=== PATIENT | female | born 1965 | race Asian ===

== ENCOUNTER 2025-03-21 07:59 | Emergency (ER) | payer BC, SELFPAY ==
--- OUTSIDE RECORDS SUMMARY | 2024-09-22 08:40 | XMS_ITS ---
Author Organization Formerly [facility] Address [address] [place] [address] Care Team Providers Care Project Control Officer Name Role Phone Ani Alcocer Primary Care Provider Willi RICHARDSON Unavailable Unavailable REASON FOR VISIT est pcp Social History Sex Assigned At : Social History Observation Description Sex Assigned At Female Encounters Encounter Location Date Provider Diagnosis [address] [address] 09/22/2024 Ani Alcocer Plan Of Treatment No Information Progress Notes * Jordan DANIELSaDOB:1965 (60 yo F)Acc No.[id number]:09/22/2024 UNLOCKED PROGRESS NOTE Progress Notes Patient: Faina JIMENEZ Provider: Jeanine Alcocer APRN :1965 A ge:59 Y S ex:Female Date:09/22/2024 Address:[address] [place], [place] [id number] Subjective: * Chief Complaints: * 1 . Est pcp. * Medical History: Objective: * Vitals: Assessment: Plan: * Treatment: * * Electronic signature of Christelle Alcocer [id number] on 03/21/2025 at 09:21 AM CDT Sign off status: Pending * Provider: Jeanine Alcocer APRN Date: 0 09/22/2024 Generated for Moraima chandler/Brad/Bowenitting on: 0 03/21/2025 09:21 AM CDT
--- NOTE | ~2025-03-21 | XR_ITS ---
Examination: XR chest 2V Clinical History: weakness, fever Comparison: None Technique: PA and Lateral Findings: Cardiomediastinal silhouette normal size and configuration. Lungs clear. No acute bony abnormality. IMPRESSION: 1. No acute cardiopulmonary findings. Reviewed, dictated and finalized at location A.
--- NOTE | ~2025-03-21 | CT_ITS ---
CT HEAD NON-CONTRAST Clinical History: ann, fevers, dizziness Comparison: None Technique: Unenhanced axial images skull base to vertex Coronal, sagittal reformats CT images acquired with automatic exposure control for dose reduction DLP: 605 mGy-cm Findings: Sulci, ventricles: Unremarkable. No intracerebral hemorrhage. No evidence acute territorial infarct. No mass effect, midline shift. Bony calvarium intact. Visualized paranasal sinuses: Clear. Mastoid air cells: Clear. IMPRESSION: 1. No acute intracranial findings. Reviewed, dictated and finalized at location A.
[2025-03-21 08:09] VITALS: BP 119/76; PULSE 102; RESP 17; TEMP 37.2; O2SAT 100
[2025-03-21 08:12] VITALS: RESP 17; O2SAT 100
[2025-03-21] MEDS: LACTATED RINGERS 1,000 ML 999 ML IV CONT (09:00)
[2025-03-21] MEDS: LACTATED RINGERS 700 ML 999 ML IV CONT (09:01)
[2025-03-21 09:04] LABS: Influenza A QL RT-PCR Negative (Negative); Influenza B QL RT-PCR Negative (Negative); RSV RNA, RT-PCR Negative (Negative); SARS-CoV-2 RNA PCR Negative (Negative)
[2025-03-21 09:07] LABS: Hematocrit 38.0 % (37.0-47.0); Hemoglobin 11.9 g/dL (12.0-15.0); Immature Granulocyte Percent A 0.5 % (0-0.5); Lymphocytes Absolute Auto 1.48 K/mm3 (0.9-3.2); Mean Corpuscular HGB Conc 31.3 g/dl (32-36); Mean Corpuscular Hemoglobin 23.4 pg (26-34); Mean Corpuscular Volume 74.8 fl (80-100); Nucleated Red Blood Cells Absolute Auto 0.000 K/mm3 (0.0-0.012); Nucleated Red Blood Cells Perc 0.0 % (0.0-0.2); Platelet Count Result 264 k/mm3 (150-375); Red Blood Count 5.08 M/mm3 (4.2-5.4); White Blood Count 7.3 K/mm3 (4.5-10.0)
[2025-03-21 09:20] LABS: Alanine Aminotransferase 22 U/L (6-35); Albumin Level 4.1 g/dL (3.5-5.1); Alkaline Phosphatase 71 U/L (38-126); Anion Gap 11 mmol/L (4-12); Aspartate Amino Transferase 25 U/L (14-36); Bilirubin,Total 0.7 mg/dL (0.2-1.3); Blood Urea Nitrogen 10 mg/dL (7-17); Calcium 9.0 mg/dL (8.4-10.2); Carbon Dioxide 21 mmol/L (22-30); Chloride 104 mmol/L (98-107); Estimated CRCL calculation 77 ml/min; Estimated Glomerular Filt Rate > 60; Glucose 285 mg/dL (65-110); Lipase 57 U/L (23-300); Potassium 4.1 mmol/L (3.4-5.0); Sodium 136 mmol/L (137-145); Total Protein 7.7 g/dL (6.3-8.2)
--- OUTSIDE RECORDS SUMMARY | 2025-03-21 09:21 | XMS_ITS | Clinical Summary ---
Author Organization [facility] Address [address] [place] [address] Phone Care Team Providers Care Imaging Assistant Name Role Phone Unavailable Primary Care Provider Unavailabl e Social History Tobacco Use Types Packs/Day Years Used Date Smoking Tobacco: Never Assessed Comments Unknown Sex and Gender Information Value Date Recorded Sex Assigned at Not on file Legal Sex Female 9:36 AM CDT Gender Identity Not on file Sexual Orientation Not on file Plan of Treatment Health Maintenance Due Date Last Done Comments Hepatitis C Virus (HCV) Screening 1965 Mammogram 1965 TdaP Immunization 1965 Pap Smear 1986 Cervical Cancer Screening (CCS) 1995 HPV/Cotest 1995 Cologuard 2010 Colonoscopy 2010 Colorectal Cancer Screening 2010 Immunochemical Fecal Occult Blood 2010 Pneumococcal Immunization (5 0+ years) (1 of 1 - PCV) 2015 Zoster Immunization (1 of 2) 2015 SARS-COV-2 Immunization ( - season) 2024 Influenza Immunization (#1) 2025 Respiratory Syncytial Virus (RSV) Immunization (Adult) (1 - 1-dose 75+ series) 01/31/2040 Hepatitis B Immunization Aged Out No longer eligible based on patient's age to complete this topic Human Papillomavirus (HPV) Immunization Aged Out No longer eligible b ased on patient's age to complete this topic Meningococcal Immunization (ACWY) Aged Out No longer eligible based on patient's age to complete this topic Rotavirus Immunization Aged Out No lo nger eligible based on patient's age to complete this topic
--- OUTSIDE RECORDS SUMMARY | 2025-03-21 09:21 | XMS_ITS | Clinical Summary ---
Author Organization [facility] Address [address] [place] [address] Care Team Providers Care Framing And Hanging Name Role Phone Lola Villarreal MD Primary Care Provider [phone] Source Comments [facility],non-owned Affiliates and Associated Physician Practices is amultiple site organization consisting of ambulatory clinics and hospital sitesin [place], [place], [place] and [place]. This disclosure is being madepursuant to the Care Everywhere program and may not contain all information available regarding this patient. Last updated 18.[facility] Allergies Active Allergy Reactions Criticality Noted Date Comments Mycinettes Unknown 05/03/2019 Medications * Be aware that medications may not be up to date on this document. Alwaysverify current medications with the patient. B-D ULTRAFINE III SHORT PEN 31G X 8 MM needleIndications: Type 2 diabetes mellitus without complication, with long-term current use of insulin (HCC) USE TO INJECT DAILY 100 Each 3 03/24/20 23 Active atorvastatin (Lipitor) 20 MG tabletIndications: Hyperlipidemia, unspecified hyperlipidemia type Take 1 (one) tablet by mouth once daily 100 tablet 4 04/03/20 23 Active Additional Information Patient not taking.Reported on 08/02/2024 cyanocobalamin (Vitamin B-12) 1000 MCG tabletIndications: Vitamin B12 deficiency Take 1 (one) tablet by mouth once daily 100 tablet 04/03/20 23 Active diclofenac sodium (Voltaren) 1 % gelIndications:Rib pain on left side Apply 4 (four) g to affected area 4 times daily as needed 100 g 1 09/25/19 24 Active Additional Information Patient not taking.Reported on 08/02/2024 insulin pen needle (1st Tier Unifine Pentips Plus) 29G X 12MM needleIndications: Type 2 diabetes mellitus without complication, with long-term current use of insulin ([facility]) as directed Use once a day for insulin administration. 100 Each 1 08/02/19 25 Active vitamin D (Cholecaciferol) 125 MCG (5000 UT) capsuleIndications :Vitamin D deficiency Take 1 (one) capsule by mouth once daily 90 capsule 08/02/19 25 Active metFORMIN ER 24hr (Glucophage XR) 500 MG tabletIndications: Type 2 diabetes mellitus without complication, with long-term current use of insulin ([facility]) TAKE 2 TABLETS BY MOUTH TWICE DAILY. 360 tablet 1 10/09/19 25 Active lisinopril (Prinivil; Zestril) 5 MG tabletIndications: Hypertension, unspecified type TAKE 1 TABLET BY MOUTH EVERY DAY. 90 tablet 1 10/09/19 25 Active Lantus SoloStar penIndications:Typ e 2 diabetes mellitus without complication, with long-term current use of insulin ([facility]) INJECT 25 UNITS SUBCUTANEOUS AT BEDTIME. 15 mL 1 11/19/19 25 Active Active Problems Problem Noted Date Diagnosed Date Vitamin B12 deficiency 04/02/2023 Benign paroxysmal positional vertigo 01/01/2023 Osteoarthritis of left knee 01/01/2023 Vitamin D deficiency 01/01/2023 Hypertension 09/03/2022 Hyperlipidemia 09/03/2022 Snoring 07/16/2022 Suspected sleep apnea 07/16/2022 Gasping for breath 07/16/2022 Fatigue 07/16/2022 Type 2 diabetes mellitus wit hout complication, with long-term current use of insulin 06/12/2022 Resolved Problems Problem Noted Date Diagnosed Date Resolved Date Fever of undetermined origin 05/15/2019 01/05/2020 Sepsis due to undetermined organism 05/12/2019 01/05/2020 Tendinopathy of rotator cuff, left 01/15/2019 09/03/2022 Pain in right knee 06/16/2018 3 Encounters Date Type Department Care Team Description 02/21/2025 Telephone [facility] - Family Medicine [address] [place] [address] Lola Villarreal MD Order from Last 3 Months Immunizations Immunization Administration Dates Next Due Covid Pfizer primary monoval ent 12+ yr 0.3mL Purple cap 12/04/2020,11/09/2020 Family History Medical History Relation Name Comments CAD (Coronary Artery Disease) Brother 1 [place] age 49 CAD (Coronary Artery Disease) Father [place] 47 Diabetes - Type 2 Father Diabetes - Type 2 Mother age 8 7 Other - Gastrointestinal Mother obs truction declined surgery Other Sister 1 heat stroke - P [place] Anxiety Disorder Sister 2 Bipolar Disorder Son Seizures Son epilepsy Relation Name Status Comments Brother 1 Brother 2 Alive Brother 3 Alive Brother 4 Alive Father Mother Sister 1 Sister 2 Alive Son Alive Social History Tobacco Use Types Packs/Day Years Used Date Smoking Tobacco: Never Smokeless Tobacco: Never Tobacco Cessation:Counseling Given: Not Answered Alcohol Use Standard Drinks/Week Comments No 0 (1 standard drink = 0.6 oz pur e alcohol) PHQ-2 Answer Date Recorded Patient Health Questionnaire-2 Score 2 08/02/2024 Comments No Sex and Gender Information Value Date Recorded Sex Assigned at Female 09/25/2023 1:09 PM CDT Legal Sex Female 1:34 PM CDT Gender Identity Not on file Sexual Orientation Not on file Last Filed Vital Signs Vital Sign Reading Time Taken Comments Blood Pressure 128/72 08/02/2024 3:01 PM LOSS PREVENTION REPRESENTATIVE Pulse 78 08/02/2024 3:01 PM LOSS PREVENTION REPRESENTATIVE Temperature 36.6 C (97.9 F) 10/31/2022 2:51 PM CDT Respiratory Rate 16 02/25/2024 3:24 PM CDT Oxygen Saturation 97% 08/02/2024 3:01 PM LOSS PREVENTION REPRESENTATIVE Inhaled Oxygen Concentration 21% 05/14/2019 1 0:46 AM CDT Weight 58.1 kg (128 lb) 09/01/2024 3:00 PM LOSS PREVENTION REPRESENTATIVE Height 154.9 cm (5' 1) 09/01/2024 3:00 PM LOSS PREVENTION REPRESENTATIVE Body Mass Index 24.19 09/01/2024 3:00 PM LOSS PREVENTION REPRESENTATIVE Plan of Treatment Health Maintenance Due Date Last Done Comments GLORY (AGES 45-75) - COLON CA SCREENING 1965 COLON MONITORING 1965 COLONOSCOPY - COLON CA SCREENING 1965 CT COLONOGRAPHY - COLON CA SCREENING 1965 Colorectal Cancer Screening 1965 FIT - COLON CA SCREENING 1965 FLEX SIG - COLON CA SCREENING 1965 DTAP/TDAP/TD VACCINES (1 - Tdap) 01/31/1984 PNEUMOCOCCAL VACCINE 50+ (1 of 2 - PCV) 01/31/1984 ZOSTER VACCINE (1 of 2) 2015 MAMMOGRAM 06/28/2021 06/28/2019, 06/04/2019 DIABETES RETINOPATHY SCREENING 06/12/2022 05/29/2020, 05/29/2020, 05/29/2020 COVID-19 VACCINE (3 - season) 2024 12/04/2020, 11/09/2020 PAP with HPV 05/26/2024 05/26/2019 DIABETES-SERUM CREATININE 10/07/20242023, 03/28/2023, 11/07/2020, Additional history exists DIABETES-FOOT EXAM WITH MONOFILAMENT 10/13/2024 10/14/2023, 09/03/2022, 01/05/2020, Additional history exists DIABETES-HGB A1C 10/31/2024 08/02/2024, , 10/08/2023, Additional history exists HEPATITIS B VACCINE (1 of 3 - Risk 3-dose series) 2025 Respiratory Syncytial Virus (RSV) Vaccine Pt: or over 60 yrs (1 - Risk 60-74 years 1-dose series) 2025 INFLUENZA VACCINE (#1) 2025 DIABETES - URINE PROTEIN SCREENING 08/02/2025 08/02/2024, 01/01/2023, 11/07/2020, Additional history exists HEPATITIS C SCREENING Completed 01/01/2019 HIV SCREENING Completed 05/13/2019 DEPRESSION SCREENING Completed 08/02/2024, 10/14/2023, 09/03/2022, Additional history exists HIB VACCINE Aged Out No longer eligi ble based on patient's age to complete this topic HPV VACCINE Aged Out No longer eligi ble based on patient's age to complete this topic MENINGOCOCCAL (Group B) VACCINE SHARED DECISION-MAKING Aged Out No longer eligible based on patient's age to complete this topic MENINGOCOCCAL GROUPS A/C/Y/W VACCINE Aged Out No longer eligible based on patient's age to complete this topic Goals Goal Patient Goal Type Associated Problems Recent Progress Patient-Stated? Author Mobility General No Magali Bolaños, RN Note: Expected end date: 07/13/2020 The goal is to maintain or improve your mobility at the optimum level for you. Interventions: Procedures Procedure Name Priority Date/Time Associated Diagnosis Comments MICROALB/CREAT RATIO URINE RANDOM PANEL Routine 08/02/2024 4:12 PM LOSS PREVENTION REPRESENTATIVE Type 2 diabetes mellitus without complication, with long-term current use of insulin HEMOGLOBIN A1C - POINT OF CARE (AMB) Routine 08/02/2024 3:34 PM LOSS PREVENTION REPRESENTATIVE Type 2 diabetes mellitus without complication, with long-term current use of insulin COMPREHENSIVE METABOLIC PANEL Routine 10/08/2023 11:40 AM CDT Type 2 diabetes mellitus without complication, with long-term current use of insulin Vitamin D deficiency HM DIABETES EYE EXAM Routine 05/29/2020 MAMMO BILAT DIAGNOSTIC Routine 06/28/2019 2:10 PM LOSS PREVENTION REPRESENTATIVE Abnormal mammogram PAP IG LB+HPV APTIMA Routine 05/26/2019 12:24 PM LOSS PREVENTION REPRESENTATIVE Well woman exam with routine gynecological exam HIV-1 HIV-2 ANTIBODY + HIV P24 AG PANEL AM Draw 05/13/2019 12:23 AM CDT Fever, unspecified fever cause HEPATITIS C ANTIBODY Routine 01/01/2019 9:55 AM CDT Encounter for hepatitis C screening test for low risk patient from Last 3 Months or Most Recently Relevant to Health Maintenance Results * MICROALB/CREAT RATIO URINE RANDOM PANEL (08/02/2024 4:12 PM LOSS PREVENTION REPRESENTATIVE) Creatinine Urine 64.3 Not Estab. mg/dL [facility] INSURANCE BILL Microalbumin Urine <3.0 Not Estab. ug/mL [facility] INSURANCE BILL Microalbumin/Crea tinine Ratio <5 0 - 29 mg/g creat [facility] INSURANCE BILL Comment: Normal: 0 - 29 Moderately increased: 30 - 300 Severely increased: >300 Urine URINE SPECIMEN OBTAINED BY CLEAN CATCH PROCEDURE / Unknown 08/02/2024 4:12 PM LOSS PREVENTION REPRESENTATIVE 08/02/2024 Narrative [facility] INSURANCE BILL - 08/03/2024 7:08 AM LOSS PREVENTION REPRESENTATIVE Performed at: [id number] [place], [place] [id number] Ward Helper: Wing Tucker PhD, Phone: [phone] us Ernestine Soto APRNSURYA LAB - URINE CHEMISTRY ORDERABLES Final Result Performing Organization Address City/[facility]/ZIP Co de Phone Number [facility] INSURANCE BILL [address] [place] [address] * HEMOGLOBIN A1C - POINT OF CARE (HgbA1C) (08/02/2024 3:34 PM LOSS PREVENTION REPRESENTATIVE) Pathologist [facility] Hemoglobin A1c POCT 10.7 % [facility] Expiration Date 03-29-26 [facility] Lot # [id number] [facility] [place] Verified Yes Yes [facility] Blood BLOOD SPECIMEN / Unknown 08/02/2024 3:34 PM LOSS PREVENTION REPRESENTATIVE Ernestine WOOD LAB - POINT OF CARE OR DERABLES Final Result Performing Organization Address City/[facility]/ZIP Co de Phone Number [facility] [address] [place], [place] [address] [phone] * (ABNORMAL) COMPREHENSIVE METABOLIC PANEL (10/08/2023 11:40 AM CDT) Glucose 226(H) 70 - 105 mg/dL [facility] ACCOUNT BILL BUN 9 7 - 26 mg/dL [facility] ACCOUNT BILL Creatinine 0.68 0.57 - 1.11 mg/dL [facility] ACCOUNT BILL eGFR by CKD-EPI >90 >=90 mL/min/1.7 3 m2 [facility] ACCOUNT BILL Sodium 139 136 - 145 mmol/L [facility] ACCOUNT BILL Potassium 4.4 3.5 - 5.1 mmol/L [facility] ACCOUNT BILL Chloride 105 98 - 107 mmol/L [facility] ACCOUNT BILL CO2 23 22 - 29 mmol/L [facility] ACCOUNT BILL Calcium 9.1 8.4 - 10.4 mg/dL [facility] ACCOUNT BILL Protein Total 7.2 6.4 - 8.3 gm/dL [facility] ACCOUNT BILL Albumin 3.9 3.4 - 5.0 gm/dL [facility] ACCOUNT BILL Bilirubin Total 0.5 0.2 - 1.2 mg/dL [facility] ACCOUNT BILL Alkaline Phosphatase 89 40 - 150 U/L [facility] ACCOUNT BILL AST 22 5 - 34 U/L [facility] ACCOUNT BILL ALT 22 0 - 55 U/L [facility] ACCOUNT BILL Comment:FASTING Blood BLOOD SPECIMEN / Unknown 10/08/2023 11:40 AM CDT 10/08/2023 Narrative Resulting Agency Comment Lab Testing performed at: [address] [id number] us Lola Villarreal MD LAB - CHEMISTRY ORDERABLES F inal Result [facility] ACCOUNT BILL [address] [place] [address] * DIABETES EYE EXAM (05/29/2020) us Provider Unknown HEALTH MAINTENANCE Final Result * MAMMO BILAT DIAGNOSTIC (06/28/2019 2:10 PM LOSS PREVENTION REPRESENTATIVE) Anatomical Region Laterality Modality Breast Bilateral Mammography 06/28/2019 2:49 PM LOSS PREVENTION REPRESENTATIVE Impressions 06/28/2019 3:03 PM LOSS PREVENTION REPRESENTATIVE No mammographic or sonographic evidence of malignancy in either breast. Findings seen on screening mammogram reflected superimposition of normal breast tissue. ASSESSMENT: BIRADS Category 1: Negative mammogram. RECOMMENDATION: Bilateral screening mammogram in one year. Findings and recommendation were discussed with the patient and her daughter by Dr. Mahoney. Thank you for allowing us to participate in the care of your patient. [facility] utilizes [employer] as a reminder system to notify patients of their next recommended mammogram. Reading Radiologist: Sophie Mahoney MD on 06/28/2019 at 3:03 PM Narrative 06/28/2019 3:03 PM LOSS PREVENTION REPRESENTATIVE EXAMINATION: Digital bilateral diagnostic mammogram and bilateral whole breast ultrasound on 06/28/2019. Low-dose digital breast tomosynthesis examination was performed with 3D acquisitions and synthetic 2D mammogram. Computer assisted detection was utilized. PRIOR: Baseline screening mammogram on 06/04/2019. HISTORY: 54-year-old female called back from screening for evaluation of focal asymmetries in both breasts. BREAST PARENCHYMAL DENSITY: The breasts are extremely dense, which lowers the sensitivity of mammography. FINDINGS: Additional views of both breasts, including spot compression views and tomosynthesis images, do not demonstrate persistent abnormality in the areas of questioned finding on the screening mammogram. There is no mass, architectural distortion, or suspicious microcalcification in either breast. Ultrasound was performed in all four quadrants and subareolar regions of both breasts by the orthotic finish grinding technician given extremely dense breast tissue. No sonographic abnormality is seen in either breast. There is no axillary adenopathy. us Evita Chapman MD MAMMO ORDERABLES Jeniffer l Result * PAP IG LB+HPV APTIMA (05/26/2019 12:24 PM LOSS PREVENTION REPRESENTATIVE) Diagnosis [facility] ACCOUNT BILL Comment: NEGATIVE FOR INTRAEPITHELIAL LESION OR MALIGNANCY. CELLULAR CHANGES ASSOCIATED WITH INFLAMMATION ARE PRESENT. Specimen Adequacy [facility] ACCOUNT BILL Comment: Satisfactory for evaluation. Endocervical and/or squamous metaplastic cells (endocervical component) are present. Clinician Provided ICD10 [facility] ACCOUNT BILL Comment: Z01.419 R93.89 Performed by [facility] ACCOUNT BILL Comment:Siobhan Gibbs, Cytot echnologist (ASCP) Comment . [facility] ACCOUNT BILL Note [facility] ACCOUNT BILL Comment: The Pap smear is a screening test designed to aid in the detection of premalignant and malignant conditions of the uterine cervix. It is not a diagnostic procedure and should not be used as the sole means of detecting cervical cancer. Both false-positive and false-negative reports do occur. . IGLBP CPT Code Automation [facility] ACCOUNT BILL Comment: This liquid based ThinPrep(R) pap test was screened with the use of an image guided system. Human papillomavirus Aptima Negative Negative [facility] ACCOUNT BILL Comment: This nucleic acid amplification test detects fourteen high-risk HPV types (16,18,31,33,35,39,45,51,52,56,58,59,66,68) without differentiation. ENTIRE ENDOCERVIX / Unknown 05/26/2019 12:24 PM LOSS PREVENTION REPRESENTATIVE 05/27/2019 Narrative [facility] ACCOUNT BILL - 05/31/2019 8:07 AM LOSS PREVENTION REPRESENTATIVE No. of containers..01 ThinPrep Vial Resulting Agency Comment Lab Testing performed at: [address] [id number] us Tram Johnston MD LAB - PATHOLOGY/CYTOLOGY ORDERAB LES Final Result [facility] ACCOUNT BILL [address] [place] [address] * HIV-1 HIV-2 ANTIBODY + HIV P24 AG PANEL (05/13/2019 12:23 AM CDT) HIV1/2 Ab + P24 Ag Non Reactive Non Reactive 05/13/2019 1:23 AM CDT [facility] Blood BLOOD SPECIMEN / Unknown Lab Venipuncture / Unknown 05/13/2019 12:23 AM CDT 05/13/2019 12:33 AM CDT Narrative [facility] - 05/13/2019 1:23 AM CDT No Laboratory evidence of HIV infection. us Belle Conroy MD LAB - CHEMISTRY ORDERABLE S Final Result [facility] [address] [place] [address] * HEPATITIS C ANTIBODY (01/01/2019 9:55 AM CDT) Hepatitis C Antibody Non Reactive Non Reactive [facility] ACCOUNT BILL Comment: Non Reactive - Antibodies to Hepatitis C virus (HCV) were no t detected, result does not exclude early acute HCV infection. FASTING Blood BLOOD SPECIMEN / Unknown 01/01/2019 9:55 AM CDT 01/01/2019 Narrative Resulting Agency Comment Lab Testing performed at: [facility] [address] [facility] [id number] us Evita Chapman MD LAB - CHEMISTRY ORDER THOMAS Final Result [facility] ACCOUNT BILL [address] [place] [address] from Last 3 Months or Most Recently Relevant to Health Maintenance Insurance [employer] Advance Directives * Full Code (Latest Code Status on File) Date Activated Date Inactivated Comments 05/12/2019 5:51 PM 05/15/2019 4:00 PM Care Teams Framing And Hanging Relationship Specialty Start Date End Date Lola Villarreal MD [address] [place] [address] PCP - General Family Medicine 09/03/22
--- OUTSIDE RECORDS SUMMARY | 2025-03-21 09:22 | XMS_ITS | Patient Health Record ---
Author Organization [facility] Address [address] [place] [address] Care Team Providers Care Obstetrician Name Role Phone Ani Alcocer Primary Care Provider [phone] Willi RICHARDSON Unavailable Kev Richardson Unavailable [phone] Allergies No Known Allergies Results Component Value Reference Range Notes Hemoglobin A1c* Reviewed date:10/28/2024 08:01:46 AM Interpretation:Abnormal Performing Lab: Notes/Report: Abnormal Hemoglobin A1c 10.2 Lipid Panel* Reviewed date:11/11/2024 09:26:35 AM Interpretation:Abnormal Performing Lab: Notes/Report: Abnormal TSH Rfx on Abnormal to Free T4 Reviewed date:11/11/2024 09:26:27 AM Interpretation:Normal Performing Lab: Notes/Report: Normal CMP 14 Comprehensive Metabol ic Panel* Reviewed date:11/11/2024 09:26:18 AM Interpretation: Performing Lab: Notes/Report: CBC With Differential/Platel et* Reviewed date:11/11/2024 09:26:07 AM Interpretation:Abnormal Performing Lab: Notes/Report: Abnormal Hemoglobin A1c CLIA Waived Reviewed date:02/03/2025 03:37:43 PM Interpretation: Performing Lab: Notes/Report: Hemoglobin A1c 10.1 4.0 - 6.4 % Reason For Referral Reason Pt. needs PAP smear Diagnosis 1 Cervical cancer scre ening (Z12.4) Referral Organization [facility] Referring Provider First Name Ani Referring Provider Last Name Short Referring Provider [facility] baldemar Referred Provider [facility] Referred Provider Specialty Offset Printer Clinical Notes [facility] dept, [address], [place]. [address], , Referral Priority Routine Reason Limited ROM in right shoulder Diagnosis 1 Right shoulder pain (M25.511) Referral Organization [facility] Referring Provider First Name Ani Referring Provider Last Name Short Referring Provider [facility] baldemar Referred Provider Specialty Physical The rapist Clinical Notes [facility], [address], [place]. [address], , Referral Priority Routine Reason FOR VERTIGO, PREFERS [facility] Diagnosis 1 Vertigo (R42) Referral Organization [facility], [facility]–1983 Referring Provider First Name Kev Referring Provider Last Name Morelia Referring Provider Speciality Internal M edicine Referred Provider Specialty Physical The rapist General Notes Shu Cain RN 02/03/2025 05:33:53 PM >Pt wanted [facility] but they are 6 weeks out in seeing Medicaid patients., Katie Domingo 02/04/2025 09:57:53 AM > will send referral to [facility]. Letter sent to patient, Carmen Green 02/14/2025 10:04:46 AM >PT exam completed 02/11/25, Consult notes reviewed & signed by MD Richardson. Closing referral. Clinical Notes Outpatient Physical Therapy, [facility], [address] [place] [address], , Referral Priority Urgent Reason POSSIBLE XR, INJECTI ON, PT RIGHT SHOULDER Diagnosis 1 Adhesive capsulitis of right shoulder (M75.01) Referral Organization [facility], [facility] Referring Provider First Name Kev Referring Provider Last Name Morelia Referring Provider Speciality Internal M edicine Referred Provider Specialty Orthopedic S urgery General Notes Ana Ritter RN 08:12:49 AM > confirmed accepting insurance via [facility] web site and calling and verifying Clinical Notes [facility], Dr Kishan Chandler, [address], [facility], Referral Priority Urgent Medications Medication SIG (Take, Route, Frequency, Duration) Notes Start Date End Date Status Lantus SoloStar 100 UNIT/ML INJECT 25 UNITS SUBCUTANEOUS AT BEDTIME. Subcutaneous once daily at bedtime; Duration: 55 days Activ e metFORMIN HCl ER 500 MG TAKE 2 TABLETS B Y MOUTH TWICE DAILY. Oral twice daily; Duration: 30 days Active Lisinopril 5 MG 1 tablet Oral Once a day; Duration: 90 days Active TRUEplus 5-Bevel Pen [place] 29G X 12.7MM USE ONCE A DAY FOR INSULIN ADMINISTRATION.; Duration: 30 days Active Ferrous Sulfate 325 (65 Fe) MG 1 tablet Orally Three times a Week; Duration: 30 days 10/26/2024 Active Vitamin D3 125 MCG (5000 UT) TAKE 1 CAPSULE BY MOUTH EVERY DAY Oral Once a day; Duration: 30 days Active Social History Tobacco Use: Social History Observation Description Date Details (start date - stop date) Never Smoker NA - NA Sex Assigned At : Social History Observation Description Sex Assigned At Female Tobacco Control (Standard) Question Answer Notes Tobacco use: Nonsmoker Problems Problem Type SNOMED Code ICD Code Onset Dates Problem Status W/U Status Risk Notes Problem Essential hypertension (00619965) Essential (primary) hypertension (I10) Active confirmed Problem Type II diabetes mellitus without complication (851787286) Diabetes (E11.9) Active confirmed Vital Signs Heart Rate 85 /min 02/03/2025 Temperature 98.2 degrees Fahrenheit 09/29/2024 Respiratory Rate 16 /min 02/03/2025 Blood pressure diastolic 70 mm Hg 02/03/2025 Oximetry 98 % 02/03/2025 Height 61 in 02/03/2025 Blood pressure systolic 118 mm Hg 02/03/2025 Weight 127.2 lbs 02/03/2025 BMI 24.03 kg/m2 02/03/2025 Encounters Encounter Location Date Provider Diagnosis [address] [place] [address] 09/29/2024 Ani Alcocer Establishing care with new doctor, encounter for Z71.89 ; Screening for deficiency anemia Z13.0 ; Screening for metabolic disorder Z13.228 ; Screening for thyroid disorder Z13.29 ; Screening for hyperlipidemia Z13.220 ; Screening for diabetes mellitus Z13.1 ; Chest pain at rest R07.9 ; Screening for breast cancer Z12.39 ; Cervical cancer screening Z12.4 ; Right shoulder pain M25.511 ; Diabetes E11.9 and Essential (primary) hypertension I10 [address] [place] [address] 02/03/2025 Kev Richardson Vertigo R42 ; Adhesive capsulitis of right shoulder M75.01 ; Diabetes E11.9 ; Essential (primary) hypertension I10 and Iron deficiency E61.[address] [address] 10/08/2024 Ani Alcocer [address] [place] [address] 10/19/2024 Ani Alcocer Iron deficiency E61. [address] [place] [address] 02/03/2025 Kev Richardson [address] [address] 02/04/2025 Kev Richardson Diabetes E11.9 and Essential (primary) hypertension I10 Assessments Encounter Date Diagnosis (ICD Code) Assessment Notes Treatment Notes Treatment Clinical Notes Section Notes 02/03/2025 Vertigo (ICD-10 - R42) 10/19/2024 Iron deficiency (ICD-10 - E61.1) 02/04/2025 Diabetes (ICD-10 - E11.9) 02/03/2025 Adhesive capsulitis of right shoulder (ICD-10 - M75.01) 09/29/2024 Establishing care with new doctor, encounter for (ICD-10 - Z71.89) 09/29/2024 Screening for deficiency anemia (ICD-10 - Z13.0) 09/29/2024 Screening for metabolic disorder (ICD-10 - Z13.228) 02/04/2025 Essential (primary) hypertension (ICD-10 - I10) 02/03/2025 Diabetes (ICD-10 - E11.9) 02/03/2025 Essential (primary) hypertension (ICD-10 - I10) 09/29/2024 Screening for thyroid disorder (ICD-10 - Z13.29) 09/29/2024 Screening for hyperlipidemia (ICD-10 - Z13.220) 02/03/2025 Iron deficiency (ICD-10 - E61.1) 09/29/2024 Screening for diabetes mellitus (ICD-10 - Z13.1) 09/29/2024 Chest pain at rest (ICD-10 - R07.9) 09/29/2024 Screening for breast cancer (ICD-10 - Z12.39) 09/29/2024 Cervical cancer screening (ICD-10 - Z12.4) 09/29/2024 Right shoulder pain (ICD-10 - M25.511) 09/29/2024 Diabetes (ICD-10 - E11.9) 09/29/2024 Essential (primary) hypertension (ICD-10 - I10) Plan Of Treatment Future Test Test Name Order Date Electrocardiogram (EKG) 09/29/2024 Mammogram, Bilateral Screening with ABUS as needed 09/29/2024 Insurance Providers Payer Name Payer Address Payer Phone Subscriber Number Group Number Insured Name Patient Relationship to Insured Coverage Start Date Coverage End Date [facility] [address] [phone] [id number] Faina Daigle Self - patient is the insured 5 Medical (General) History Hospitalization History Reason Date(Month/Year) Urinary Trouble 2014
[2025-03-21 09:24] LABS: INR 1.0; Prothrombin Time 13.8 Seconds (11.1-14.7)
[2025-03-21 09:25] LABS: Partial Thromboplastin Time 29.1 Seconds (22.3-36.8)
[2025-03-21 09:26] LABS: Microcytosis 1+ (NORMAL); Schistocytes None Seen
--- NOTE | 2025-03-21 09:59 | ED_ITS ---
HPI - Fever General Chief Complaint: Fever Stated Complaint: fever, headache Time Seen by Provider: 03/21/25 09:04 Source: patient Mode of arrival: ambulatory Limitations: no limitations History of Present Illness HPI Narrative: Patient is 60-year-old female who presents the ED with report of fevers. Patient reports she has had a fever intermittently for the past 3 days. Reports Tmax last night 103-104 F. Did take tylenol at that time. C/o FINLEY, intermittent dizziness, rhinorrhea, slight cough, congestion, sore throat, fatigue, generalized weakness. Does note hx of vertigo. Reports 1 episode of vomiting r/t dizziness. Denies ABD pain, diarrhea, sick contacts. Related Data Allergies Allergy/AdvReac Type Severity Reaction Status Date / Time No Known Allergies Allergy Verified 03/21/25 08:14 Review of Systems 2 Review of Systems: All systems reviewed & are unremarkable except as noted in HPI. All systems reviewed & are unremarkable except as noted in HPI and below Exam 2 Narrative: GENERAL: Well appearing, well-nourished, non-toxic, in no acute distress. HEAD: Normocephalic, atraumatic. RESPIRATORY: Airway patent, respirations nonlabored. Clear to auscultation bilaterally, no rales, rhonchi, wheezing. No focal lung sounds. CARDIOVASCULAR: Regular rate and rhythm without murmurs, rubs, or gallops. ABDOMINAL: Soft, nontender, nondistended. Normoactive BS. MUSCULOSKELETAL: Moves all extremities. No gross deformities. SKIN: Warm, dry, normal color. NEURO: A&O X3. Speech clear. Cranial nerves II-XII grossly intact. Steady gait. No ataxic movements. No focal deficits. PSYCHIATRIC: Appropriate mood and affect. Normal interaction. Course Vital Signs Vital signs: Vital Signs Temperature 98.9 F 03/21/25 08:09 Pulse Rate 102 H 03/21/25 08:09 Respiratory Rate 17 03/21/25 08:09 Blood Pressure 119/76 03/21/25 08:09 Pulse Oximetry 100 03/21/25 08:09 Oxygen Delivery Room Air 03/21/25 08:09 Temperature 98.9 F 03/21/25 08:09 Pulse Rate 92 03/21/25 12:07 Respiratory Rate 18 03/21/25 12:07 Blood Pressure 125/84 03/21/25 12:07 Pulse Oximetry 100 03/21/25 12:07 Oxygen Delivery Room Air 03/21/25 08:09 MDM - Fever MDM Narrative Medical decision making narrative: Patient presented to ED with intermittent fever for the past 3 days, mild URI symptoms, headache. Vital signs are stable upon arrival here today. Patient is afebrile here. Borderline tachycardic. Fluids initiated. Cbc without leukocytosis or significant anemia. CMP is fairly unremarkable. Stable electrolytes. Stable kidney function. Normal LFTs and lipase. Blood glucose was mildly elevated to 287. Patient does admit to not taking her insulin or metformin last night due to not feeling well. No evidence of DKA. Normal anion gap. Lactic acid is mildly elevated 2.5. Again fluids are ongoing. UA with trace leuk esterase, 6-10 WBC, no urine bacteria seen. Patient denies any urinary complaints at this time. Sent for culture. Viral swabs are negative. Strep negative. Chest x-ray is clear. CT brain clear. Patient given 2 L of fluid in the ED. Repeat lactic acid downtrending. Patient able to tolerate PO intake. Feeling improved after fluids, requesting something to eat/drink. Discussed lab and imaging findings, overall reassuring workup with patient. Suspicious for viral URI. Discussed continued management of such. Recommended close follow-up with PCP for further evaluation. Given strict return precautions. Patient in agreement with plan. D/C in stable condition. Medical Records Attestation: I reviewed the patient's medical records. Lab Data Attestation: I reviewed the patient's lab results. 03/21/25 09:00 03/21/25 09:00 Labs: Lab Results 03/21/25 03/21/25 03/21/25 Range/Units 08:19 08:21 09:00 WBC 7.3 (4.5-10.0) K/mm3 RBC 5.08 (4.2-5.4) M/mm3 Hgb 11.9 L (12.0-15.0) g/dL Hct 38.0 (37.0-47.0) % MCV 74.8 L (80-100) fl MCH 23.4 L (26-34) pg MCHC 31.3 L (32-36) g/dl RDW 14.0 (11.5-14.5) % Plt Count 264 (150-375) k/mm3 MPV 9.8 (7.4-10.4) fl Immature Gran % (Auto) 0.5 (0-0.5) % Neut % (Auto) 70.6 (45.5-73.1) % Lymph % (Auto) 20.2 (18.3-44.2) % Freestone % (Auto) 7.6 (2.6-8.5) % Eos % (Auto) 0.8 (0-4.4) % Baso % (Auto) 0.3 (0.2-1.2) % Lymph # (Auto) 1.48 (0.9-3.2) K/mm3 Freestone # (Auto) 0.6 (0.1-0.6) K/mm3 Eos # (Auto) 0.1 (0-0.3) K/mm3 Baso # (Auto) 0.0 (0.0-0.1) K/mm3 Abs Immat Gran (auto) 0.04 H (0.00-0.031) K/mm3 Absolute Neuts (auto) 5.2 (1.3-6.7) K/mm3 Absolute Nucleated RBC 0.000 (0.0-0.012) K/mm3 Band Neutrophils % Not Reportable Nucleated RBC % 0.0 (0.0-0.2) % Platelet Estimate Adequate (Adequate) Microcytosis 1+ (NORMAL) Schistocytes None seen PT 13.8 (11.1-14.7) Seconds INR 1.0 APTT 29.1 (22.3-36.8) Seconds Sodium 136 L (137-145) mmol/L Potassium 4.1 (3.4-5.0) mmol/L Chloride 104 (98-107) mmol/L Carbon Dioxide 21 L (22-30) mmol/L Anion Gap 11 (4-12) mmol/L BUN 10 (7-17) mg/dL Creatinine 0.49 L (0.7-1.0) mg/dL Estim Creat Clear Calc 77 ml/min Estimated GFR > 60 (59 - ) Glucose 285 H (65-110) mg/dL POC Capillary Glucose 276 H (65-105) mg/dl Lactic Acid 2.5 H (0.7-2.0) mmol/L Calcium 9.0 (8.4-10.2) mg/dL Total Bilirubin 0.7 (0.2-1.3) mg/dL AST 25 (14-36) U/L ALT 22 (6-35) U/L Alkaline Phosphatase 71 (38-126) U/L Total Protein 7.7 (6.3-8.2) g/dL Albumin 4.1 (3.5-5.1) g/dL Lipase 57 (23-300) U/L Urine Color (Yellow) Urine Appearance (Clear) Urine pH (5.0-9.0) Ur Specific Oran (1.001-1.035) Urine Protein (Negative) mg/dL Urine Glucose (UA) (Negative) mg/dL Urine Ketones (Negative) mg/dL Ur Blood (Man) (Negative) Urine Nitrate (Negative) Urine Bilirubin (Negative) Urine Urobilinogen (<2.0) mg/dL Leukocyte Esterase Rfl (Negative) CHELE/UL Urine RBC (0-2) /hpf Urine WBC (0-3) /hpf Ur Squamous Epith Cells (Few) /hpf Urine Bacteria /hpf Urine Casts POC Urine HCG, Qual (Negative) Influenza A (RT-PCR) Negative (Negative) Influenza B (RT-PCR) Negative (Negative) RSV (RT-PCR) Negative (Negative) SARS-CoV-2 RNA (RT-PCR) Negative (Negative) Group A Strep (PCR) (Negative) 03/21/25 03/21/25 03/21/25 Range/Units 10:23 10:29 11:16 WBC (4.5-10.0) K/mm3 RBC (4.2-5.4) M/mm3 Hgb (12.0-15.0) g/dL Hct (37.0-47.0) % MCV (80-100) fl MCH (26-34) pg MCHC (32-36) g/dl RDW (11.5-14.5) % Plt Count (150-375) k/mm3 MPV (7.4-10.4) fl Immature Gran % (Auto) (0-0.5) % Neut % (Auto) (45.5-73.1) % Lymph % (Auto) (18.3-44.2) % Freestone % (Auto) (2.6-8.5) % Eos % (Auto) (0-4.4) % Baso % (Auto) (0.2-1.2) % Lymph # (Auto) (0.9-3.2) K/mm3 Freestone # (Auto) (0.1-0.6) K/mm3 Eos # (Auto) (0-0.3) K/mm3 Baso # (Auto) (0.0-0.1) K/mm3 Abs Immat Gran (auto) (0.00-0.031) K/mm3 Absolute Neuts (auto) (1.3-6.7) K/mm3 Absolute Nucleated RBC (0.0-0.012) K/mm3 Band Neutrophils % Nucleated RBC % (0.0-0.2) % Platelet Estimate (Adequate) Microcytosis (NORMAL) Schistocytes PT (11.1-14.7) Seconds INR APTT (22.3-36.8) Seconds Sodium (137-145) mmol/L Potassium (3.4-5.0) mmol/L Chloride (98-107) mmol/L Carbon Dioxide (22-30) mmol/L Anion Gap (4-12) mmol/L BUN (7-17) mg/dL Creatinine (0.7-1.0) mg/dL Estim Creat Clear Calc ml/min Estimated GFR (59 - ) Glucose (65-110) mg/dL POC Capillary Glucose (65-105) mg/dl Lactic Acid 2.2 H (0.7-2.0) mmol/L Calcium (8.4-10.2) mg/dL Total Bilirubin (0.2-1.3) mg/dL AST (14-36) U/L ALT (6-35) U/L Alkaline Phosphatase (38-126) U/L Total Protein (6.3-8.2) g/dL Albumin (3.5-5.1) g/dL Lipase (23-300) U/L Urine Color Yellow (Yellow) Urine Appearance Clear (Clear) Urine pH 5.5 (5.0-9.0) Ur Specific [place] 1.010 (1.001-1.035) Urine Protein Negative (Negative) mg/dL Urine Glucose (UA) 3+ H (Negative) mg/dL Urine Ketones Trace H (Negative) mg/dL Ur Blood (Man) Negative (Negative) Urine Nitrate Negative (Negative) Urine Bilirubin Negative (Negative) Urine Urobilinogen 0.2 (<2.0) mg/dL Leukocyte Esterase Rfl Trace H (Negative) CHELE/UL Urine RBC 0-2 (0-2) /hpf Urine WBC 6-10 H (0-3) /hpf Ur Squamous Epith Cells Few (Few) /hpf Urine Bacteria None seen /hpf Urine Casts 0-2 POC Urine HCG, Qual Negative (Negative) Influenza A (RT-PCR) (Negative) Influenza B (RT-PCR) (Negative) RSV (RT-PCR) (Negative) SARS-CoV-2 RNA (RT-PCR) (Negative) Group A Strep (PCR) Not detected (Negative) Imaging Data Attestation: I personally reviewed and interpreted this imaging study as follows: Radiologist's impression: ITS Impressions Chest X-Ray 03/21/25 10:19 IMPRESSION: 1. No acute cardiopulmonary findings. Head CT 03/21/25 11:08 IMPRESSION: 1. No acute intracranial findings. Discharge Plan Discharge Clinical Impression: Upper respiratory infection Qualifiers: URI type: unspecified URI Qualified Code(s): J06.9 - Acute upper respiratory infection, unspecified Fever Qualifiers: Fever type: unspecified Qualified Code(s): R50.9 - Fever, unspecified Patient Disposition: Home Condition: Stable Instructions: Antibiotic Form, Fever in Adults (ED), Upper Respiratory Infection (ED), Viral Syndrome (ED) Additional Instructions: Your work up here was reassuring. You tested negative for COVID, influenza, RSV, strep throat. You likely have a viral upper respiratory infection that should improve on its own over the next several days. Stay well-hydrated at home. Recommend electrolyte rich fluids, Gatorade, Pedialyte, body armor. Utilize Zofran as needed for nausea. Utilize Tessalon Perles as needed for cough. Continue Tylenol and Ibuprofen for discomfort and/or fevers. Recommend [id number] cough and cold medicines for symptom relief as needed: Delsym, Mucinex, DayQuil, NyQuil, Sudafed, Robitussin, TheraFlu. Follow up with your primary care doctor for further evaluation. Return to the ED if you experience chest pain, difficulty breathing, unable to keep down food or drink, severe pain, severe dizziness, passing out, or any other symptoms of concern. Patient Language: [place] Island[place] Prescriptions: New benzonatate 200 mg capsule 200 mg PO TID PRN (Reason: cough) Qty: 14 0RF ondansetron 4 mg tablet,disintegrating 4 mg PO Q8H PRN (Reason: nausea and vomiting) Qty: 15 0RF Follow-up/Referrals: PHYSICIAN,TELEPHONE ORDER CLERK ROOM SERVICE [Primary Care Provider, Internal Medicine] Kishore Jordan MD [Physician, Family Practice] Referral Note: PRIMARY CARE Time of Disposition: 11:44
[2025-03-21 10:31] LABS: BEDSIDEPREGUCG Negative (Negative)
[2025-03-21 10:43] VITALS: BP 117/75; PULSE 76; RESP 16; O2SAT 97
[2025-03-21 10:52] LABS: Non Pathogenic Casts 0-2
[2025-03-21 10:54] LABS: Add Urine Microscopic? YES; Appearance Urine Clear (Clear); Glucose Urine UA 3+ mg/dL (Negative); Specific Grav Ur 1.010 (1.001-1.035)
[2025-03-21 10:55] LABS: Leukocyte Esterase Ur Trace LEU/UL (Negative); Nitrate Urine Negative (Negative)
[2025-03-21 10:58] LABS: Strep Group A RT-PCR NOT DETECTED (Negative)
[2025-03-21 12:07] VITALS: BP 125/84; PULSE 92; RESP 18; O2SAT 100
== END 2025-03-21 12:09 | disposition home or self-care (01) ==
PROVIDERS: Emergency Medicine; Emergency Provider Physician Assistant
DX: J06.9 Acute upper respiratory infection, unspecified (principal); R50.9 Fever, unspecified; Z20.822 Contact with and (suspected) exposure to COVID-19
CPT/HCPCS: 36415; 70450; 71046; 80053; 81001; 81025; 82948; 83605; 83690; 85025; 85610; 85730; 87086; 87637; 87651; 99284; J7120